=== PATIENT | male | born 1960 | race Caucasian/White ===

== ENCOUNTER 2017-07-02 14:15 | Emergency (ER) | payer BC ==
[2017-07-02 15:25] VITALS: BP 117/78
[2017-07-02] MEDS ORDERED: Sodium Chloride 0.9% 1,000 ML IV ONE (15:25)
[2017-07-02] MEDS ORDERED: Ondansetron 4 MG/2 ML SDV IVPUSH ONE (15:25)
--- NOTE | 2017-07-02 15:30 | EDM.PDOC ---
<Efrem Martinez - Last Filed: 07/02/17 16:26> ED HPI GENERAL MEDICAL PROBLEM - General Chief Complaint: Gastrointestinal Problem Stated Complaint: THINKS HE HAS FOOD POISONING Time Seen by Provider: 07/02/17 14:20 - History of Present Illness INITIAL COMMENTS - FREE TEXT/NARRATIVE: HISTORY AND PHYSICAL: History of present illness: This is a 57-year-old male with no significant past medical history presenting to the emergency department complaining of food poisoning. Patient tells me that this past Friday he had pizza for dinner when he started to immediately thereafter began to vomit and diarrhea. Tells me this has been persistent for the past 3 days. He tells me he has been unable to digest any food since then. He has not been able to keep water down either. Currently complains of nausea. He denies any abdominal pain chest pain or shortness of breath. Denies any fevers or chills. Review of systems: As per history of present illness and below otherwise all systems reviewed and negative. Past medical history: As per history of present illness and as reviewed below otherwise noncontributory. Surgical history: As per history of present illness and as reviewed below otherwise noncontributory. Social history: No reported history of drug or alcohol abuse. Family history: As per history of present illness and as reviewed below otherwise noncontributory. Physical exam: HEENT: Atraumatic, normocephalic, pupils reactive, negative for conjunctival pallor or scleral icterus, mucous membranes moist, throat clear, neck supple, nontender, trachea midline. Lungs: Clear to auscultation, breath sounds equal bilaterally, chest nontender. Heart: S1S2, regular, negative for clicks, rubs, or JVD. Abdomen: Soft, nondistended, nontender. Negative for masses or hepatosplenomegaly. Negative for costovertebral tenderness. Pelvis: Stable nontender. Genitourinary: Deferred. Rectal: Deferred. Extremities: Atraumatic, negative for cords or calf pain. Neurovascular unremarkable. Neuro: Awake, alert, oriented. Cranial nerves II through XII unremarkable. Cerebellum unremarkable. Motor and sensory unremarkable throughout. Exam nonfocal. Diagnostics: CBC CMP lipase Therapeutics: IV normal saline bolus 4 mg IV Zofran Impression: Gastroenteritis Plan: Discharge home. Follow-up with primary care provider. Advised any fluids and advance diet as tolerated. Abdominal Pain Score (Numeric/FACES): 3 - Related Data Allergies Allergy/AdvReac Type Severity Reaction Status Date / Time No Known Allergies Allergy Verified 07/02/17 15:19 Home Meds: Home Meds Levothyroxine Sodium [Synthroid] 75 mcg PO DAILY 07/02/17 [History] Past Medical History Endocrine/Metabolic History: Reports: Hypothyroidism Social & Family History - Tobacco Use Smoking Status *Q: Never Smoker - Recreational Drug Use Recreational Drug Use: No ED ROS GENERAL - Review of Systems Review Of Systems: See Below (See dictation) ED EXAM, GI/ABD - Physical Exam Exam: See Below (See dictation) Course - Vital Signs Text/Narrative:: Patient presents to the emergency department complaining of food poisoning. CBC is CMP were ordered and were unremarkable. Lipase is also unremarkable. After an IV normal saline bolus and a one-time IV 4 mg Zofran dosage, the patient felt better. Patient was then ultimately discharged home and advised to follow- up with primary care provider. Last Recorded V/S: Last Vital Signs Temp 35.8 C 07/02/17 15:24 Pulse 93 07/02/17 15:24 Resp 18 07/02/17 15:24 BP 117/78 07/02/17 15:24 Pulse Ox 95 07/02/17 15:24 - Orders/Labs/Meds Labs: Laboratory Tests 07/02/17 07/02/17 Range/Units 15:33 15:33 WBC 8.07 (4.0-11.0) K/uL RBC 5.44 (4.50-5.90) M/uL Hgb 17.1 H (13.0-17.0) g/dL Hct 48.7 (38.0-50.0) % MCV 89.5 (80.0-98.0) fL MCH 31.4 (27.0-32.0) pg MCHC 35.1 (31.0-37.0) g/dL RDW Std Deviation 43.9 (28.0-62.0) fl RDW Coeff of Kendall 13 (11.0-15.0) % Plt Count 253 (150-400) K/uL MPV 10.50 (7.40-12.00) fL Add Manual Diff YES Neutrophils % (Manual) 66 (48.0-80.0) % Band Neutrophils % 11 % Lymphocytes % (Manual) 10 L (16.0-40.0) % Monocytes % (Manual) 13 (0.0-15.0) % Nucleated RBC % 0.0 /100WBC Absolute Seg Neuts 5.3 Band Neutrophils # 0.9 Lymphocytes # (Manual) 0.8 Monocytes # (Manual) 1.0 Nucleated RBCs # 0 K/uL Sodium 137 (136-146) mmol/L Potassium 3.7 (3.5-5.1) mmol/L Chloride 99 (98-110) mmol/L Carbon Dioxide 26 (21-31) mmol/L BUN 30 H (6.0-23.0) mg/dL Creatinine 1.2 (0.6-1.5) mg/dL Est Cr Clr Drug Dosing 71.82 mL/min Estimated GFR (MDRD) > 60.0 ml/min Glucose 114 H (60-110) mg/dL Calcium 9.4 (8.8-10.8) mg/dL Total Bilirubin 2.1 H (0.1-1.5) mg/dL AST 18 (5-40) IU/L ALT 22 (8-54) IU/L Alkaline Phosphatase 65 (40-150) Total Protein 7.5 (6.0-8.0) g/dL Albumin 4.2 (3.5-5.0) g/dL Globulin 3.3 (2.0-3.5) g/dL Albumin/Globulin Ratio 1.3 (1.3-2.8) Lipase 14 (7-80) U/L Meds: Medications Discontinued Medications Generic Name Dose Route Start Last Admin Trade Name Leny PRN Reason Stop Dose Admin Sodium Chloride 1,000 mls @ 999 mls/hr 07/02/17 15:25 07/02/17 15:38 Normal Saline IV 07/02/17 16:25 999 mls/hr STAT ONE Administration Ondansetron HCl 4 mg 07/02/17 15:25 07/02/17 15:53 Zofran IVPUSH 07/02/17 15:26 4 mg ONETIME ONE Administration Departure - Departure Time of Disposition: 16:24 Disposition: Home, Self-Care 01 Condition: Good Clinical Impression: Gastroenteritis - Discharge Information Instructions: Viral Gastroenteritis, Adult, Zted-oh-[id number] Referrals: PCP,None [Primary Care Provider] - Forms: ED Department Discharge Additional Instructions: My general discharge The following information is given to patients seen in the emergency department who are being discharged to home. This information is to outline your options for follow-up care. We provide all patients seen in our emergency department with a follow-up referral. The need for follow-up, as well as the timing and circumstances, are variable depending upon the specifics of your emergency department visit. If you don't have a primary care physician on staff, we will provide you with a referral. We always advise you to contact your personal physician following an emergency department visit to inform them of the circumstance of the visit and for follow-up with them and/or the need for any referrals to a consulting specialist. The emergency department will also refer you to a specialist when appropriate. This referral assures that you have the opportunity for follow-up care with a specialist. All of these measure are taken in an effort to provide you with optimal care, which includes your follow-up. Under all circumstances we always encourage you to contact your private physician who remains a resource for coordinating your care. When calling for follow-up care, please make the office aware that this follow-up is from your recent emergency room visit. If for any reason you are refused follow-up, please contact the [facility] Emergency Department at and asked to speak to the emergency department charge nurse. Return to seek further medical attention if he experiences worsening nausea, vomiting, fevers or chills. Advance diet as tolerated. Make sure to drink plenty of fluids as tolerated. Follow-up with her primary care provider. <Hi London - Last Filed: 07/02/17 16:34> Departure - Departure Condition: Good
[2017-07-02 16:06] LABS: CHLORIDE,CL 99 mmol/L (98-110); SODIUM,NA 137 mmol/L (136-146)
== END 2017-07-02 16:35 | disposition home or self-care (01) ==
LOC: MW.ED 14:15
DX: K52.9 Noninfective gastroenteritis and colitis, unspecified (principal); E03.9 Hypothyroidism, unspecified; Z79.899 Other long term (current) drug therapy
CPT/HCPCS: 36415; 80053; 83690; 85025; 96361; 96374; 99284; J2405; J7040